=== PATIENT | male | born 2000 | race Caucasian/White ===

== ENCOUNTER 2020-02-24 09:57 | Emergency (ER) | payer SELFPAY ==
[2020-02-24 10:01] VITALS: BP 133/75; PULSE 75; RESP 18; TEMP 36.6; O2SAT 100; BMI 25.7
--- NOTE | 2020-02-24 10:05 | CT_ITS ---
WS: [id number] CT NECK WITH CONTRAST HISTORY: swelling TECHNIQUE: Contiguous 5 mm axial images are performed through the neck with intravenous contrast. Sag ittal and coronal reformats are also submitted. All CT scans at [facility] use at least o ne of these dose optimization techniques: automated exposure control; mA and/or kV adjustment per pat ient size (includes targeted exams where dose is matched to clinical indication); or iterative recons truction. CONTRAST: CONTRAST: Omnipaque 300; 95 mL IV. DLP: 705.58 mGy.cm COMPARISON: None available. Significant inflammatory process in the soft tissues of the LEFT parapharyngeal region. This is invol ving the sublingual and palatine tonsil. There is infiltration of soft tissue along the parapharyngea l fat and obliteration of the torus tubarius. This inflammatory process measures at least 3.6 x 3.1 c m. There is partial compromise or mass effect upon the oropharynx. The inflammation extends to the pr evertebral soft tissue. There is additional extension superficially into the parapharyngeal fat with cellulitis and soft tissue thickening predominantly over the LEFT submandibular and parotid region. C ellulitis extends into the submandibular sublingual soft tissues. There are numerous bilateral cervic al chain lymph nodes. These lymph nodes are rounded and hyperemic measuring up to 13 mm in diameter. Lung apices are clear. Negative thyroid gland. There is additional mild soft tissue stranding in the anterior mediastinal fat which I believe is probably thymic tissue and not infection spreading into t he upper mediastinum. Notified Aditi Luis MD at 02/24/2020 10:[address]/CT neck w con* [id number] IMPRESSION: 1. Significant phlegmonous process with developing abscess centered in the LEF T parapharyngeal soft tissues with mild narrowing of the oropharynx. Inflammato ry process measures at least 3.6 x 3.1 cm. 2. There is extensive cellulitis throughout the soft tissues of the neck and f elizabeth. 3. Bilateral cervical chain lymphadenopathy.
--- NOTE | 2020-02-24 10:06 | ED_ITS ---
HPI - Dental/Oral General: Chief complaint: Dental/Oral Stated complaint: dental pain/swollen throat Time Seen by Provider: 02/24/20 10:02 Source: patient Mode of arrival: ambulatory Limitations: no limitations History of Present Illness: HPI Narrative: 19-year-old male sent here by dentist for dental infection. He states he broke lower left molar had swelling into his neck. Dentist was concerned and wanted imaging. He denies any shortness of breath and he has no difficulty swallowing or breathing here. He states he does have dental pain and has been taking 250 mg of amoxicillin. He states his pain is sharp in nature and rates it a 4 out of 10. He denies any worsening or improving factors. MD Complaint: tooth pain Associated symptoms: Denies fever(s) Review of Systems Const: Denies: fever(s), chills, body aches or change in appetite Eyes: Denies: blurry vision or eye discomfort ENMT: Reports: dental pain Card: Denies: chest pain Resp: Denies: dyspnea GI: Denies: abdominal pain, nausea, vomiting or diarrhea : Denies: dysuria Musc: Denies: neck pain or back pain Skin/Breast: Denies: rash Neuro: Denies: headache(s) Psych: Denies: depression Jose Alfredo/Lymph: Denies: easy bruising All/Imm: Denies: urticaria PFSH ED PFSH: Social History Smoking and tobacco status: never smoked Physical Exam Const: COMMON NORMALS: no acute distress, patient oriented x3 and healthy appearing HENMT: COMMON NORMALS: normocephalic and atraumatic HEAD & SCALP: normocephalic and atraumatic OTHER: Tenderness over left lower molar with swelling down to left neck. Eye: COMMON NORMALS: Equal, round and reactive pupils present and EOMs intact bilaterally PUPIL: Yes Equal, round and reactive pupils present Neck/C-Spine: COMMON NORMALS: full ROM and supple Chest: COMMONS NORMALS: normal inspection of the chest and normal palpation of entire chest wall Resp: COMMON NORMALS: normal respiratory effort, No retractions, No use of accessory muscles and clear to auscultation bilaterally AUSCULTATION: clear to auscultation bilaterally Cardio: COMMON NORMALS: regular rate, regular rhythm and No murmurs present (Cardio) RATE: regular rate RHYTHM: regular rhythm GI: COMMON NORMALS: Normal to inspection, nondistended, normoactive bowel sounds present, Soft to palpation, non-tender and no masses PALPATION: Yes Soft to palpation Extremity: COMMON NORMALS: normal to inspection and full ROM Neuro: COMMON NORMALS: patient oriented x3, moves all extremities and no focal motor deficits Psych: COMMON NORMALS: mental status grossly normal, Normal thought process present and cooperative THOUGHT PROCESS: Normal thought process present Skin: COMMON NORMALS: no rashes or lesions noted and no wounds GENERAL SKIN EXAM: no rashes or lesions noted Course Vital Signs: Vital signs: Vital Signs Temperature 97.9 F 02/24/20 10:01 Pulse Rate 86 02/24/20 12:25 Respiratory Rate 19 H 02/24/20 12:25 Blood Pressure 102/68 02/24/20 12:25 Pulse Oximetry 100 02/24/20 12:25 MDM - Dental/Oral MDM Narrative: Medical decision making narrative: Patient presents here with a parapharyngeal abscess. Patient states he has difficulty swallowing but has had no respiratory distress here. Patient given IV steroids and antibiotics. Spoke to ENT at [facility] and they recommended transfer ER to ER. I spoke to Dr. Escoto in the ER and will transfer there for higher level of care as we do not have ENT erosion control coordinator at this time. Lab Data: Labs: Lab Results 02/24/20 02/24/20 Range/Units 10:11 10:11 WBC 12.2 H (4.0-10.0) 10^3/ uL RBC 5.57 H (4.1-5.3) 10^6/u L Hgb 15.7 (11.7-16.6) g/dL Hct 47.8 (42.0-52.0) % MCV 85.8 (80-94) fL MCH 28.2 (28.0-34.0) pg MCHC 32.8 (30.0-36.0) g/dL RDW 12.6 (12.1-15.1) % Plt Count 220 (130-400) 10^3/c mm MPV 10.9 H (7.4-10.4) fL Neut % (Auto) 75.7 % Lymph % (Auto) 12.8 % [place] % (Auto) 9.5 % Eos % (Auto) 1.1 % Baso % (Auto) 0.2 % Neut # (Auto) 9.2 H (1.8-7.7) 10^3/u L Lymph # (Auto) 1.6 (0.8-4.8) 10^3/u L [place] # (Auto) 1.2 H (0.2-0.9) 10^3/u L Eos # (Auto) 0.1 (0.0-0.8) 10^3/u L Baso # (Auto) 0.0 (0.0-0.1) 10^3/u L Nucleated RBC % (a uto) 0 % Nucleated RBCs # 0.0 /100WBC Sodium 140 (136-145) mmol/L Potassium 3.5 (3.5-5.1) mmol/L Chloride 99 (98-107) mmol/L Carbon Dioxide 25 (22-29) mmol/L Anion Gap 19.5 H (5-19) BUN 13 (6-20) mg/dL Creatinine 1.1 (0.7-1.2) mg/dL GFR Calculation 84.5 L (90-130) mL/min Glucose 93 (65-115) mg/dL Calculated Osmolal ity 286 (285-295) mOsm/k g Calcium 10.4 (8.5-10.5) mg/dL Total Bilirubin 1.2 (0.15-1.2) mg/dL AST 20 (0-40) U/L ALT 22 (0-41) U/L Alkaline Phosphata se 33 L (40-130) IU/L Total Protein 8.5 (6.6-8.7) g/dL Albumin 4.7 (3.5-5.2) g/dL Globulin 3.8 (1.3-4.6) g/dL Imaging Data^: ct neck: Attestation: I personally reviewed and interpreted this imaging study as follows: Radiologist's impression: [address] [address] [address] Scan Report Signed Patient: Aaron Leblanc Unit #: [id number] : 2000 Age/Sex: 19 / M ADM Date: 02/24/20 Loc: ER Room/Bed: Attending Dr: Ordering Provider/Ordering MD: Aditi Luis MD Date of Service: 02/24/20 Procedure(s): CT neck w con* [id number] Accession Number(s): [id number] Report Number: [id number] WS: [id number] CT NECK WITH CONTRAST HISTORY: swelling TECHNIQUE: Contiguous 5 mm axial images are performed through the neck with intravenous contrast. Sagittal and coronal reformats are also submitted. All CT scans at [facility] use at least one of these dose optimization techniques: automated exposure control; mA and/or kV adjustment per patient size (includes targeted exams where dose is matched to clinical indication); or iterative reconstruction. CONTRAST: CONTRAST: Omnipaque 300; 95 mL IV. DLP: 705.58 mGy.cm COMPARISON: None available. Significant inflammatory process in the soft tissues of the LEFT parapharyngeal region. This is involving the sublingual and palatine tonsil. There is infiltration of soft tissue along the parapharyngeal fat and obliteration of the torus tubarius. This inflammatory process measures at least 3.6 x 3.1 cm. There is partial compromise or mass effect upon the oropharynx. The inflammation extends to the prevertebral soft tissue. There is additional extension superficially into the parapharyngeal fat with cellulitis and soft tissue thickening predominantly over the LEFT submandibular and parotid region. Cellulitis extends into the submandibular sublingual soft tissues. There are numerous bilateral cervical chain lymph nodes. These lymph nodes are rounded and hyperemic measuring up to 13 mm in diameter. Lung apices are clear. Negative thyroid gland. There is additional mild soft tissue stranding in the anterior mediastinal fat which I believe is probably thymic tissue and not infection spreading i nto the upper mediastinum. Notified Aditi Luis MD at 02/24/2020 10:[address]/CT neck w con* [id number] IMPRESSION: 1. Significant phlegmonous process with developing abscess centered in the LEFT parapharyngeal soft tissues with mild narrowing of the oropharynx. Inflammatory process measures at least 3.6 x 3.1 cm. 2. There is extensive cellulitis throughout the soft tissues of the neck and face. 3. Bilateral cervical chain lymphadenopathy. Discharge Plan Discharge Patient Disposition: Xfer Other Clinical Impression: Abscess, parapharyngeal space Condition: Stable Discharge Orders: Transfer Out of Facility (Order); Ordered 02/24/20 Ordered By: Aditi Luis Referrals: Jeovanny Castellanos, MATERIALS MANAGEMENT CLERK [Primary Care Provider] - Coding Level of Care Code ED [employer] Service Advisor for Chg Fwd Exam Comprehensive
[2020-02-24 10:26] LABS: Basophils % 0.2 %; Eosinophils # 0.1 10^3/uL (0.0-0.8); Eosinophils % 1.1 %; Hematocrit 47.8 % (42.0-52.0); Hemoglobin 15.7 g/dL (11.7-16.6); Lymphocytes # 1.6 10^3/uL (0.8-4.8); Lymphocytes % 12.8 %; Mean Corpuscular HGB Conc 32.8 g/dL (30.0-36.0); Mean Corpuscular Hemoglobin 28.2 pg (28.0-34.0); Mean Corpuscular Volume 85.8 fL (80-94); Mean Platelet Volume 10.9 fL (7.4-10.4); Monocytes # 1.2 10^3/uL (0.2-0.9); Monocytes % 9.5 %; Neutrophils # 9.2 10^3/uL (1.8-7.7); Neutrophils % 75.7 %; Nucleated Red Blood Cells % 0 %; Platelet Count 220 10^3/cmm (130-400); Red Blood Count 5.57 10^6/uL (4.1-5.3); Red Cell Distribution Width 12.6 % (12.1-15.1); White Blood Count 12.2 10^3/uL (4.0-10.0)
[2020-02-24] MEDS: iohexol 300 mg/mL 100 mL Btl IV (10:32)
[2020-02-24] MEDS: sodium chloride 0.9% 1,000 ML 999 ML IV (10:42)
[2020-02-24] MEDS: clindamycin 900 MG/50 ML PREMIX 100 MG IV (10:43)
[2020-02-24 11:00] LABS: Alanine Aminotransferase 22 U/L (0-41); Albumin Level 4.7 g/dL (3.5-5.2); Alkaline Phosphatase 33 IU/L (40-130); Anion Gap 19.5 (5-19); Aspartate Amino Transferase 20 U/L (0-40); Blood Urea Nitrogen 13 mg/dL (6-20); Calcium 10.4 mg/dL (8.5-10.5); Carbon Dioxide 25 mmol/L (22-29); Chloride 99 mmol/L (98-107); Globulin 3.8 g/dL (1.3-4.6); Glomerular Filtration Rate 84.5 mL/min (90-130); Glucose 93 mg/dL (65-115); Osmolality Calculated 286 mOsm/kg (285-295); Potassium 3.5 mmol/L (3.5-5.1); Sodium 140 mmol/L (136-145); Total Bilirubin 1.2 mg/dL (0.15-1.2); Total Protein 8.5 g/dL (6.6-8.7)
[2020-02-24 12:25] VITALS: BP 102/68; PULSE 86; RESP 19; O2SAT 100
[2020-02-24] MEDS: dexamethasone 10 mg/mL INJ IVP (12:46)
== END 2020-02-24 14:24 | disposition other institution (70) ==
PROVIDERS: Emergency Provider Emergency Medicine; PCP Nurse Practitioner Family
DX: J39.0 Retropharyngeal and parapharyngeal abscess (principal)
CPT/HCPCS: 12345; 70491; 80053; 85025; 96365; 96375; 99282; 99285; J1100; J3490; J7030; Q9967